=== PATIENT | female | born 1960 | race Caucasian/White ===

== ENCOUNTER 2016-09-08 16:44 | Emergency (ER) | payer OTHER ==
[~2016-09-08] VITALS: Ht 165.1 cm; Wt 90.7 kg
[~2016-09-08 16:44] MED LIST: ONDA4TAB7 PO; OXYC-323 PO
[2016-09-08] MEDS ORDERED: ASPIRIN CHEWABLE 81 MG TABLET. PO ONE (17:30)
[2016-09-08 18:01] LABS: BASO # 0.1 x10^3/uL (0.0-0.2); BASO % 1 % (0-3); EOS % 3 % (0-3); HEMATOCRIT 43.2 % (36.0-47.0); HEMOGLOBIN 14.6 g/dL (12.0-15.5); LYMPH # 1.3 x10^3/uL (1.0-4.8); LYMPH % 16 % (24-48); MEAN CORPUSCULAR HEMOGLOBIN 30 pg (25-35); MEAN CORPUSCULAR HGB CONC 34 g/dL (31-37); MEAN CORPUSCULAR VOLUME 88 fL (79-100); MONO % 7 % (0-9); NEUT % 74 % (31-73); PLATELET COUNT 281 x10^3/uL (140-400); RED BLOOD COUNT 4.89 x10^6/uL (3.50-5.40); RED CELL DISTRIBUTION WIDTH 14.1 % (11.5-14.5)
[2016-09-08 18:12] LABS: CALCIUM 9.9 mg/dL (8.5-10.1); CREATININE 0.8 mg/dL (0.6-1.0); GFR 74.2
[2016-09-08 18:20] VITALS: BP 106/62
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
[2016-09-08] MEDS ORDERED: NAPR375T3 PO (19:12)
--- NOTE | 2016-09-09 08:22 | RAD ---
2 view CXR: Clinical indications: Right sided extremity pain for one day. Left-sided muscle spasms in the upper arm since yesterday. Comparison: November 23, 2006. Findings: No acute lung infiltrate or pleural effusion or pulmonary edema or lung mass or pneumothorax is seen. The heart size, pulmonary vasculature, mediastinum and both deisy are unremarkable. Impression: No acute radiographic abnormality is seen.
--- NOTE | 2016-09-09 08:32 | EKG ---
[facility] [address] [place] [id number] Test Date: 2016-09-08 Test Time: 17:31:06 Pat Name: ANNABEL RANKIN Department: Room: Gender: F Inspector Packager: : [id number] Requested By: Nai MCCARTY Order Number: [id number] Reading MD: Jesyon Tellez Measurements Intervals [place] Rate: 73 P: 41 SD: 118 QRS: 20 QRSD: 74 T: 23 QT: 358 QTc: 398 Interpretive Statements SINUS RHYTHM LEFT ATRIAL ABNORMALITY Electronically Signed On 09-10-2016 15:05:06 CDT by Jeyson Tellez
== END 2016-09-08 19:15 | disposition home or self-care (01) ==
LOC: ER 16:44
DX: M79.602 Pain in left arm (principal); R11.0 Nausea; W19.XXXA Unspecified fall, initial encounter; Y93.89 Activity, other specified; Y92.89 Other specified places as the place of occurrence of the external cause; Y99.8 Other external cause status
CPT/HCPCS: 36415; 71010; 80048; 84484; 85027; 93005; 99285-25

== ENCOUNTER 2017-07-13 10:58 | Emergency (ER) | payer OTHER ==
[2017-07-13] MEDS: ASPIRIN 325 MG TABLET PO (11:21)
[2017-07-13 11:36] LABS: ADD MAN DIFF? NO
[2017-07-13 11:49] LABS: BASO # 0.1 x10^3/uL (0.0-0.2); BASO % 1 % (0-3); EOS # 0.2 x10^3/uL (0.0-0.7); EOS % 3 % (0-3); HEMATOCRIT 42.4 % (36.0-47.0); LYMPH % 15 % (24-48); MEAN CORPUSCULAR HEMOGLOBIN 31 pg (25-35); MEAN CORPUSCULAR HGB CONC 35 g/dL (31-37); MEAN CORPUSCULAR VOLUME 86 fL (79-100); MONO # 0.5 x10^3/uL (0.0-1.1); MONO % 7 % (0-9); NEUT # 5.2 x10^3uL (1.8-7.7); NEUT % 74 % (31-73); PLATELET COUNT 272 x10^3/uL (140-400); RED BLOOD COUNT 4.92 x10^6/uL (3.50-5.40); RED CELL DISTRIBUTION WIDTH 13.5 % (11.5-14.5); WHITE BLOOD COUNT 7.1 x10^3/uL (4.0-11.0)
[2017-07-13 11:58] LABS: ANION GAP 10 (6-14); BLOOD UREA NITROGEN 15 mg/dL (7-20); BUN/CREATININE RATIO 21 (6-20); CALCIUM 8.8 mg/dL (8.5-10.1); CARBON DIOXIDE 27 mmol/L (21-32); CHLORIDE 105 mmol/L (98-107); CREATININE 0.7 mg/dL (0.6-1.0); GFR 86.2; GLUCOSE 122 mg/dL (70-99); POTASSIUM 4.1 mmol/L (3.5-5.1); SODIUM 142 mmol/L (136-145)
[2017-07-13 12:00] LABS: TROPONINI < 0.017 ng/mL (0.000-0.055)
[2017-07-13 12:02] LABS: ALBUMIN 3.8 g/dL (3.4-5.0); ALBUMIN/GLOBULIN RATIO 1.2 (1.0-1.7); ALK PHOS 100 U/L (46-116); ALT (SGPT) 21 U/L (14-59); AST (SGOT) 12 U/L (15-37); LIPASE 92 U/L (73-393); MAGNESIUM 2.1 mg/dL (1.8-2.4); TOTAL BILIRUBIN 0.4 mg/dL (0.2-1.0); TOTAL PROTEIN 7.1 g/dL (6.4-8.2)
[2017-07-13 12:05] LABS: THYROID STIM HORMONE (TSH) 0.621 uIU/mL (0.358-3.74)
[2017-07-13 12:09] LABS: CKMB INDEX 0.9 % (0-4); CKMB MASS 0.8 ng/mL (0.0-3.6); CREATINE KINASE 89 U/L (26-192)
[2017-07-13 12:09] LABS: NT-PRO BNP 125 pg/mL (0-124)
== END 2017-07-13 13:45 | disposition home or self-care (01) ==
LOC: ER 10:58
DX: R07.89 Other chest pain (principal); F17.200 Nicotine dependence, unspecified, uncomplicated; M19.90 Unspecified osteoarthritis, unspecified site
CPT/HCPCS: 36415; 71045; 80053; 82553; 83690; 83735; 83880; 84443; 84484; 85025; 85610; 93005; 99285-25